=== PATIENT | female | born 1950 | race African-American/Black ===

== ENCOUNTER 2016-09-27 15:20 | Emergency (ER) | payer BC | END 2016-09-27 15:30 | disposition home or self-care (01) | LOC: ER 15:20 | DX: S50.861A Insect bite (nonvenomous) of right forearm, initial encounter (principal); K21.9 Gastro-esophageal reflux disease without esophagitis; Z88.5 Allergy status to narcotic agent; Z88.8 Allergy status to other drugs, medicaments and biological substances; W57.XXXA Bitten or stung by nonvenomous insect and other nonvenomous arthropods, initial encounter | CPT/HCPCS: 96374; 99283 ==